=== PATIENT | female | born 1990 | race Caucasian/White ===

== ENCOUNTER 2019-03-15 10:42 | Emergency (ER) | payer BC ==
[2019-03-15] MEDS ORDERED: HYDROmorphone 1 MG/ML Syringe IM ONE (11:04)
--- NOTE | 2019-03-15 11:13 | EDM.PDOC ---
ED HPI GENERAL MEDICAL PROBLEM - General Chief Complaint: Back Pain or Injury Stated Complaint: back pain Time Seen by Provider: 03/15/19 11:00 History Limitations: Reports: No Limitations - History of Present Illness INITIAL COMMENTS - FREE TEXT/NARRATIVE: Patient seen in clinic with long history of chronic back pain probably since the age of 14 patient patient denies any known injury although she has history of degenerative arthritis of the lower back MRI was done recently which revealed similar findings at this time patient is in tears I will refer her to the pain clinic [place] . 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: Other Medication(s) Left Hip/Back Pain Score (Numeric/FACES): 9 - Related Data Allergies Allergy/AdvReac Type Severity Reaction Status Date / Time No Known Allergies Allergy Verified 03/15/19 10:44 Home Meds: Home Meds DULoxetine HCl [Duloxetine HCl] 60 mg PO DAILY 03/15/19 [History] DULoxetine [Cymbalta] 30 mg PO DAILY 03/15/19 [History] Diclofenac Sodium [Voltaren] 75 mg PO BID 03/15/19 [History] Gabapentin [Neurontin] 600 mg PO TID PRN 03/15/19 [History] Omeprazole 20 mg PO DAILY 03/15/19 [History] buPROPion HCl [Bupropion Xl] 450 mg PO DAILY 03/15/19 [History] tiZANidine [Zanaflex] 4 mg PO BEDTIME 03/15/19 [History] ED ROS GENERAL - Review of Systems Review Of Systems: See Below Constitutional: Reports: Other (obese) HEENT: Reports: Glasses Respiratory: Reports: No Symptoms Cardiovascular: Reports: No Symptoms Endocrine: Reports: Other (Gestational diabetes) GI/Abdominal: Reports: No Symptoms, Other (History of IBS) : Reports: No Symptoms Musculoskeletal: Reports: Back Pain Skin: Reports: No Symptoms Neurological: Reports: No Symptoms Psychiatric: Reports: No Symptoms ED EXAM,LOWER BACK PAIN/INJURY - Physical Exam Exam: See Below Exam Limited By: Other (Pain) General Appearance: Anxious, Moderate Distress, Obese Ears: Normal External Exam, Normal Canal, Hearing Grossly Normal, Normal TMs Nose: Normal Inspection, Normal Mucosa, No Blood Throat/Mouth: Normal Inspection, Normal Lips, Normal Teeth, Normal Gums, Normal Oropharynx, Normal Voice, No Airway Compromise Head: Atraumatic, Normocephalic Neck: Normal Inspection, Supple, Non-Tender, Full Range of Motion Respiratory/Chest: Decreased Breath Sounds Cardiovascular: Normal Peripheral Pulses, Regular Rate, Rhythm, No Edema, No Gallop, No JVD, No Murmur, No Rub GI/Abdominal: Normal Bowel Sounds, Soft, Non-Tender, No Organomegaly, No Distention, No Abnormal Bruit, No Mass Back Exam: Normal Inspection, Decreased Range of Motion, Other (Degenerative joint disease) Extremities: Leg Pain, Limited Range of Motion Neurological: Alert, Normal Mood/Affect, Normal Dorsiflexion, CN II-XII Intact, Normal Plantar Flexion, Normal Gait, Normal Reflexes, No Motor/Sensory Deficits , Oriented x 3, Straight Leg Raise (L) Psychiatric: Anxious, Tearful Skin Exam: Warm, Dry, Intact, Normal Color, No Rash Lymphatic: No Adenopathy Course - Orders/Labs/Meds Meds: Medications Discontinued Medications Generic Name Dose Route Start Last Admin Trade Name Freq PRN Reason Stop Dose Admin Hydromorphone HCl 1 mg 03/15/19 11:04 Dilaudid IM 03/15/19 11:05 ONETIME ONE Departure - Departure Time of Disposition: 11:25 Disposition: Home, Self-Care 01 Condition: Fair Clinical Impression: Chronic back pain greater than 3 months duration - Discharge Information *PRESCRIPTION DRUG MONITORING PROGRAM REVIEWED*: Yes *COPY OF PRESCRIPTION DRUG MONITORING REPORT IN PATIENT JOJO: Yes Referrals: Lyn Quiroz PA-C [Primary Care Provider] - Additional Instructions: Referral to pain clinic [place] patient given a shot of Dilaudid for immediate relief
[2019-03-15 11:21] VITALS: BP 126/66
== END 2019-03-15 11:55 | disposition home or self-care (01) ==
LOC: LL.ED 10:42
DX: G89.29 Other chronic pain (principal); M54.9 Dorsalgia, unspecified; M51.36 Other intervertebral disc degeneration, lumbar region; Z79.899 Other long term (current) drug therapy
CPT/HCPCS: 96372; 99283; J1170

== ENCOUNTER 2019-05-04 15:31 | Emergency (ER) | payer BC ==
[2019-05-04] MEDS ORDERED: diazePAM 5 MG/ML MDV IM ONE (15:53)
[2019-05-04] MEDS ORDERED: Ketorolac 60 MG/2 ML SDV IM ONE (15:54)
--- NOTE | 2019-05-04 16:07 | EDM.PDOC ---
ED HPI GENERAL MEDICAL PROBLEM - General Chief Complaint: Back Pain or Injury Stated Complaint: Back pain Time Seen by Provider: 05/04/19 15:35 Source of Information: Reports: Patient History Limitations: Reports: No Limitations - History of Present Illness INITIAL COMMENTS - FREE TEXT/NARRATIVE: Patient is a 29-year-old who is seen in the emergency room secondary to right buttocks pain patient states that she fell on Thursday and since that time has not had progressive increase of pain was started on prednisone but continues having significant pain at this time she is here for evaluation states that pain is about 10 out of 10 Onset: Gradual Duration: Day(s): (3 days), Getting Worse Location: Reports: Back, Lower Extremity, Right Quality: Reports: Stabbing Severity: Moderate Improves with: Reports: None Context: Reports: Trauma Associated Symptoms: Reports: Other (Back pain) Back Pain Score (Numeric/FACES): 9 - Related Data Allergies Allergy/AdvReac Type Severity Reaction Status Date / Time No Known Allergies Allergy Verified 05/04/19 15:57 Home Meds: Home Meds DULoxetine HCl [Duloxetine HCl] 60 mg PO DAILY 03/15/19 [History] DULoxetine [Cymbalta] 30 mg PO DAILY 03/15/19 [History] Gabapentin [Neurontin] 600 mg PO TID PRN 03/15/19 [History] Omeprazole 20 mg PO DAILY 03/15/19 [History] buPROPion HCl [Bupropion Xl] 450 mg PO DAILY 03/15/19 [History] tiZANidine [Zanaflex] 4 mg PO BEDTIME 03/15/19 [History] busPIRone [Buspar] 15 mg PO BID 05/04/19 [History] Past Medical History - Past Health History Medical/Surgical History: Denies Medical/Surgical History Social & Family History - Tobacco Use Smoking Status *Q: Current Some Day Smoker Years of Tobacco use: 8 Packs/Tins Daily: 0.5 - Caffeine Use Caffeine Use: Reports: Coffee, Energy Drinks - Recreational Drug Use Recreational Drug Use: No ED ROS GENERAL - Review of Systems Review Of Systems: See Below Constitutional: Reports: No Symptoms HEENT: Reports: No Symptoms Respiratory: Reports: No Symptoms Cardiovascular: Reports: No Symptoms Endocrine: Reports: No Symptoms GI/Abdominal: Reports: No Symptoms : Reports: No Symptoms Musculoskeletal: Reports: Muscle Pain Skin: Reports: No Symptoms Neurological: Reports: No Symptoms Psychiatric: Reports: No Symptoms Hematologic/Lymphatic: Reports: No Symptoms Immunologic: Reports: No Symptoms ED EXAM,LOWER BACK PAIN/INJURY - Physical Exam Exam: See Below Exam Limited By: No Limitations General Appearance: Alert, WD/WN, No Apparent Distress Ears: Normal External Exam, Normal Canal, Hearing Grossly Normal, Normal TMs Nose: Normal Inspection, Normal Mucosa, No Blood Throat/Mouth: Normal Inspection, Normal Lips, Normal Teeth, Normal Gums, Normal Oropharynx, Normal Voice, No Airway Compromise Head: Atraumatic, Normocephalic Neck: Normal Inspection, Supple, Non-Tender, Full Range of Motion Respiratory/Chest: No Respiratory Distress, Lungs Clear, Normal Breath Sounds, No Accessory Muscle Use, Chest Non-Tender Cardiovascular: Normal Peripheral Pulses, Regular Rate, Rhythm, No Edema, No Gallop, No JVD, No Murmur, No Rub GI/Abdominal: Normal Bowel Sounds, Soft, Non-Tender, No Organomegaly, No Distention, No Abnormal Bruit, No Mass (Female) Exam: Deferred Rectal (Female) Exam: Deferred Back Exam: Normal Inspection, Decreased Range of Motion, Paraspinal Tenderness Extremities: Limited Range of Motion, Other (Positive right leg elevation at less than 15 on the right) Psychiatric: Normal Affect Skin Exam: Warm, Dry Course - Vital Signs Last Recorded V/S: Last Vital Signs Temp 99.2 F 05/04/19 15:32 Pulse 81 05/04/19 16:35 Resp 16 05/04/19 16:35 BP 112/79 05/04/19 16:35 Pulse Ox 98 05/04/19 16:35 - Orders/Labs/Meds Meds: Medications Discontinued Medications Generic Name Dose Route Start Last Admin Trade Name Freq PRN Reason Stop Dose Admin Diazepam 10 mg 05/04/19 15:53 05/04/19 16:01 Valium IM 05/04/19 15:54 10 mg ONETIME ONE Administration Ketorolac Tromethamine 60 mg 05/04/19 15:54 05/04/19 16:02 Toradol IM 05/04/19 15:55 60 mg ONETIME ONE Administration Departure - Departure Time of Disposition: 16:50 Disposition: Home, Self-Care 01 Condition: Fair Clinical Impression: Muscle strain - Discharge Information *PRESCRIPTION DRUG MONITORING PROGRAM REVIEWED*: No *COPY OF PRESCRIPTION DRUG MONITORING REPORT IN PATIENT JOJO: No Referrals: Lyn Quiroz PA-C [Primary Care Provider] - Forms: ED Department Discharge Care Plan Goals: Follow-up with your PCP as needed. Use ice/heat with topical over the counter pain ointment.
[2019-05-04 16:51] VITALS: BP 112/79
== END 2019-05-04 16:50 | disposition home or self-care (01) ==
LOC: LL.ED 15:31
DX: S39.012A Strain of muscle, fascia and tendon of lower back, initial encounter (principal); F17.210 Nicotine dependence, cigarettes, uncomplicated; Z79.899 Other long term (current) drug therapy; W19.XXXA Unspecified fall, initial encounter; M53.86 Other specified dorsopathies, lumbar region; M54.30 Sciatica, unspecified side; I87.8 Other specified disorders of veins
CPT/HCPCS: 73502; 96372; 99283; J1885; J3360

== ENCOUNTER 2022-02-03 08:56 | Emergency (ER) | payer BC ==
[2022-02-03] MEDS ORDERED: Sodium Chloride 0.9% 1,000 ML IV ONE (09:48)
[2022-02-03] MEDS ORDERED: Sodium Chloride 0.9% 10 ML Syringe FLUSH PRN (09:50)
[2022-02-03 09:56] LABS: ANION GAP 9.9 meq/L (7-15); CHLORIDE,CL 105 mmol/L (98-107); SODIUM,NA 139 mmol/L (136-145)
[2022-02-03 11:09] LABS: BARBITURATE SCREEN,URINE NEGATIVE (NEGATIVE); BENZODIAZEPINES SCREEN,URINE NEGATIVE (NEGATIVE); EDDP,URINE SCREEN NEGATIVE (NEGATIVE); TCA SCREEN,URINE NEGATIVE (NEGATIVE); THC SCREEN,URINE 50 NG/ML NEGATIVE (NEGATIVE)
[2022-02-03 11:11] LABS: BUPRENORPHINE SCREEN,URINE NEGATIVE (NEGATIVE)
[2022-02-03 13:01] VITALS: BP 87/66; PULSE 65
== END 2022-02-03 12:20 | disposition home or self-care (01) ==
LOC: LL.ED 08:56
DX: I95.9 Hypotension, unspecified (principal); Z79.899 Other long term (current) drug therapy; Z79.84 Long term (current) use of oral hypoglycemic drugs; Z72.0 Tobacco use
CPT/HCPCS: 36415; 80053; 80178; 80305-QW; 80307; 81001; 81025; 83605; 84443; 84484; 85025; 93005; 93010; 99284; 99284-25; J3490; J7030